=== PATIENT | female | born 1965 | race Caucasian/White ===

== ENCOUNTER 2019-08-06 14:25 | Emergency (ER) | payer MEDICAID ==
[~2019-08-06] VITALS: Ht 160 cm; Wt 72.0 kg
--- NOTE | 2019-08-06 14:27 | NUR ---
pt changed into gown, nibp, o2 and bp monitoring in place by donte ontiveros md in room at this time for eval.
[2019-08-06] MEDS ORDERED: SODIUM CHLORIDE 0.9% 1,000 ML IV ONE (14:30)
[2019-08-06] MEDS ORDERED: SODIUM CHLORIDE FLUSH 10ML SYR IVF ONE (14:30)
[2019-08-06] MEDS ORDERED: SODIUM CHLORIDE 0.9% 1,000ML IVBOLUS ONE (14:30)
[2019-08-06] MEDS ORDERED: PLEASE ENTER ALLERGIES MC SCH (15:00)
[2019-08-06] MEDS ORDERED: PLEASE ENTER HEIGHT AND WEIGHT MC SCH (15:00)
[2019-08-06 15:02] LABS: BASOPHILS # (AUTO) 0.03 x10^3/uL (0-0.1); BASOPHILS % (AUTO) 0 % (0-1); EOSINOPHILS # (AUTO) 0.07 x10^3/uL (0-0.4); EOSINOPHILS % (AUTO) 1 % (1-7); LYMPHOCYTES % (AUTO) 14 % (22-44); MD NO; MEAN CORPUSCULAR HEMOGLOBIN 31.1 pg (27.0-34.8); MEAN CORPUSCULAR HGB CONC 33.7 g/dL (32.4-35.8); MEAN CORPUSCULAR VOLUME 92.3 fL (80-100); MEAN PLATELET VOLUME 8.2 fL (7.4-10.4); MONOCYTES % (AUTO) 6 % (2-9); NEUTROPHILS # (AUTO) 6.96 x10^3/uL (1.8-6.8); NEUTROPHILS % (AUTO) 79 % (42-75); PLATELET COUNT 232 x10^3/uL (130-400); RED BLOOD COUNT 4.84 x10^6/uL (3.82-5.3); RED CELL DISTRIBUTION WIDTH 13.3 % (9.6-15.2)
[2019-08-06] MEDS ORDERED: ACETAMINOPHEN 500 MG TABLET ONE (15:07)
[2019-08-06 15:14] LABS: ALANINE AMINOTRANSFERASE 21 U/L (12-78); ALBUMIN 3.9 g/dL (3.4-5.0); ANION GAP 4 mmol/L (5-15); CHLORIDE 110 mmol/L (98-107); CREATININE 0.92 mg/dL (0.55-1.02)
[2019-08-06 15:16] LABS: ALKALINE PHOSPHATASE 89 U/L (45-117); BILIRUBIN,TOTAL 0.4 mg/dL (0.2-1.0); TOTAL PROTEIN 7.8 g/dL (6.4-8.2)
[2019-08-06] MEDS ORDERED: ACETAMINOPHEN 500 MG TABLET PO ONE (15:30)
[2019-08-06 16:02] VITALS: BP 135/77
[2019-08-06 16:25] LABS: CULTURE INDICATED? YES; MICROSCOPIC INDICATED
--- NOTE | 2019-08-06 16:50 | NUR ---
BREAK RN: CARE FOR DC PROVIDED. IV DC'D WITH CANNULA INTACT. REVIEWED DC INSTRUCTIONS WITH PT. UNDERSTANDING VERBALIZED. PT TO LEAVE AMB.
== END 2019-08-06 16:54 | disposition home or self-care (01) ==
LOC: ED 15:09
DX: K52.9 Noninfective gastroenteritis and colitis, unspecified (principal); N30.00 Acute cystitis without hematuria; R11.2 Nausea with vomiting, unspecified
CPT/HCPCS: 36415; 71045; 74177; 80053; 81001; 83605; 83690; 85025; 87040; 87086; 93005; 96360; 96361; 99285; J7030